=== PATIENT | female | born 1955 | race Caucasian/White ===

== ENCOUNTER 2017-10-22 11:34 | Emergency (ER) | payer OTHER ==
[~2017-10-22] VITALS: Ht 170.2 cm; Wt 90.0 kg
[~2017-10-22 11:34] MED LIST: LIPITOR10 M1 PO; LISINOPRIL10 MG PO; METFORMIN500 MG PO; NAPROSYN500 MG PO; PROTONIX40 M2 PO; ZOFRAN4 MG/TAB PO
[2017-10-22] MEDS ORDERED: VENLAFAXINE37.5 M1 PO (11:57)
[2017-10-22] MEDS ORDERED: PANTOPRAZOLE SO40 M1 PO (11:58)
[2017-10-22 12:25] LABS: INFLUENZA A NONE DETECTED (NONE DETECT); INFLUENZA B NONE DETECTED (NONE DETECT)
[2017-10-22] MEDS ORDERED: AFRIN 12 HOUR0.05 % (12:42)
[2017-10-22] MEDS ORDERED: TESSALON PER100 MG PO (12:42)
[2017-10-22] MEDS ORDERED: ZPAK PO (12:46)
[2017-10-22 12:56] VITALS: BP 145/88
== END 2017-10-22 12:50 | disposition home or self-care (01) | DRG 153 ==
LOC: ED 11:34
PROVIDERS: Emergency Medicine
DX: J06.9 Acute upper respiratory infection, unspecified (principal); E11.9 Type 2 diabetes mellitus without complications; I10 Essential (primary) hypertension; J45.909 Unspecified asthma, uncomplicated

== ENCOUNTER 2017-10-31 21:00 | Emergency (ER) | payer OTHER ==
[~2017-10-31] VITALS: Ht 170.2 cm; Wt 100.0 kg
[~2017-10-31 21:00] MED LIST changes: +AFRIN 12 HOUR0.05 %; +PANTOPRAZOLE SO40 M1 PO; +TESSALON PER100 MG PO; +VENLAFAXINE37.5 M1 PO; +ZPAK PO
[2017-10-31] MEDS ORDERED: IBUPROFEN600 MG PO (23:19)
[2017-10-31 23:26] VITALS: BP 128/69
== END 2017-10-31 23:32 | disposition home or self-care (01) | DRG 563 ==
LOC: ED 21:00
DX: S63.501A Unspecified sprain of right wrist, initial encounter (principal); W01.0XXA Fall on same level from slipping, tripping and stumbling without subsequent striking against object, initial encounter; Y93.01 Activity, walking, marching and hiking; Y92.89 Other specified places as the place of occurrence of the external cause

== ENCOUNTER 2019-08-10 12:39 | Emergency (ER) | payer MEDICARE, OTHER ==
[~2019-08-10] VITALS: Ht 170.2 cm; Wt 91.0 kg
[~2019-08-10 12:39] MED LIST changes: +IBUPROFEN600 MG PO
[2019-08-10] MEDS ORDERED: CALAN40 MG PO (13:02)
[2019-08-10] MEDS ORDERED: ASPIRIN81 MG PO (13:03)
[2019-08-10] MEDS ORDERED: DITROPAN XL10 MG PO (13:03)
[2019-08-10] MEDS ORDERED: PRAMIPEXOLE DI0.5 MG PO (13:05)
[2019-08-10] MEDS ORDERED: CALCIUM 600+D31 TA2 PO (13:07)
[2019-08-10 13:54] LABS: HEMATOCRIT 42.3 % (37.0-47.0); HEMOGLOBIN 14.1 g/dl (12.0-16.0); IMMATURE GRANULOCYTES 0.3 % (0.0-5.0); MEAN CELL VOLUME 95.1 fL CALC (80.0-100.0); MEAN CORPUSCULAR HGB 31.7 pG CALC (26.0-32.0); MEAN CORPUSCULAR HGB CONC 33.3 g/L CALC (32.0-36.0); NEUT# 3.39 thou/uL (2.00-7.15); RED BLOOD COUNT 4.45 mill/uL (4.20-5.60); RED CELL DISTRI WIDTH 12.2 % (11.5-15.5)
[2019-08-10 13:55] LABS: URINE BILIRUBIN - DIPSTICK NEGATIVE (NEGATIVE); URINE BLOOD DIPSTICK TRACE-INTACT (NEGATIVE); URINE COLOR YELLOW; URINE GLUCOSE - DIPSTICK NEGATIVE (NEGATIVE); URINE KETONE NEGATIVE (NEGATIVE); URINE NITRITE - DIPSTICK NEGATIVE (Negative); URINE PROTEIN - DIPSTICK NEGATIVE (NEG-TRACE); URINE SPECIFIC GRAVITY <=1.005; URINE UROBILINOGEN - DIPSTICK 0.2 E.U./dL (0.2)
[2019-08-10 13:57] LABS: URINE BACTERIA FEW hpf; URINE EPITHELIAL CELLS FEW EPI/hpf (0-FEW); URINE LEUK ESTERASE MODERATE (NEGATIVE); URINE RBC 0-2 RBC/hpf (0-5)
[2019-08-10 14:30] LABS: ALBUMIN 4.5 g/dL (3.2-5.0); ALKALINE PHOSPHATASE 75 u/l (38-126); ANION GAP 11 (6-22 (CALC)); BUN 12 mg/dL (8-23); BUN/CREATININE RATIO 15 (12-20 (CALC)); CARBON DIOXIDE 26 mmol/l (22-30); CHLORIDE 106 mmol/l (95-108); CREATININE 0.8 mg/dL (0.5-1.0); GFR > 60 ML/MIN (>=60 (CALC)); GFR FOR AFR.AMER. > 60 ML/MIN (>=60 (CALC)); POTASSIUM 4.1 mmol/l (3.5-5.1); SGOT/AST 25 u/l (9-36); SODIUM 139 mmol/l (137-146); TOTAL PROTEIN 7.6 g/dL (6.3-8.2)
[2019-08-10 14:32] LABS: BILIRUBIN, TOTAL 0.5 mg/dL (0.0-1.4)
[2019-08-10] MEDS ORDERED: KEFLEX500 M1 PO (15:42)
[2019-08-10 16:13] VITALS: BP 143/56
== END 2019-08-10 16:13 | disposition home or self-care (01) ==
LOC: ED 12:39
DX: N39.0 Urinary tract infection, site not specified (principal); R53.1 Weakness; R00.1 Bradycardia, unspecified; I10 Essential (primary) hypertension; E11.9 Type 2 diabetes mellitus without complications; B96.20 Unspecified Escherichia coli [E. coli] as the cause of diseases classified elsewhere

== ENCOUNTER 2020-02-26 | Emergency (ER) | payer MEDICARE, OTHER ==
[~2020-02-26] MED LIST changes: +ASPIRIN81 MG PO; +CALAN40 MG PO; +CALCIUM 600+D31 TA2 PO; +DITROPAN XL10 MG PO; +KEFLEX500 M1 PO; +PRAMIPEXOLE DI0.5 MG PO
[2020-02-26] MEDS ORDERED: LISINOPRIL20 M1 PO (10:56)
[2020-02-26] MEDS ORDERED: ATORVASTATIN CA20 MG PO (10:57)
== END 2020-02-26 11:25 | disposition home or self-care (01) ==
DX: M25.572 Pain in left ankle and joints of left foot (principal); I10 Essential (primary) hypertension; E11.9 Type 2 diabetes mellitus without complications; X50.0XXA Overexertion from strenuous movement or load, initial encounter; Y92.009 Unspecified place in unspecified non-institutional (private) residence as the place of occurrence of the external cause

== ENCOUNTER 2020-03-05 16:23 | Emergency (ER) | payer MEDICARE, OTHER ==
[~2020-03-05 16:23] MED LIST changes: +ATORVASTATIN CA20 MG PO; +LISINOPRIL20 M1 PO
[2020-03-05 17:20] VITALS: BP 147/59
== END 2020-03-05 17:20 | disposition home or self-care (01) ==
LOC: ED 16:23
DX: M25.572 Pain in left ankle and joints of left foot (principal); I10 Essential (primary) hypertension

== ENCOUNTER 2020-03-22 07:56 | Emergency (ER) | payer MEDICARE, OTHER ==
[2020-03-22] MEDS ORDERED: ULTRAM50 MG PO (10:08)
[2020-03-22] MEDS ORDERED: FLEXERIL PO ×2 (10:08)
[2020-03-22 10:28] VITALS: BP 147/64
== END 2020-03-22 10:29 | disposition home or self-care (01) ==
LOC: ED 07:56
DX: S06.0X0A Concussion without loss of consciousness, initial encounter (principal); S16.1XXA Strain of muscle, fascia and tendon at neck level, initial encounter; I10 Essential (primary) hypertension; E11.9 Type 2 diabetes mellitus without complications; W07.XXXA Fall from chair, initial encounter; Y92.009 Unspecified place in unspecified non-institutional (private) residence as the place of occurrence of the external cause

== ENCOUNTER 2020-04-04 15:50 | Inpatient (IN) | payer MEDICARE, OTHER ==
[~2020-04-04] VITALS: Ht 170.2 cm; Wt 90.5 kg
[~2020-04-04 15:50] MED LIST changes: +FLEXERIL PO; +ULTRAM50 MG PO
--- NOTE | 2020-04-04 16:08 | NUR ---
PATIENT TO ROOM WITH A SLOW, STEADY GAIT.
--- NOTE | 2020-04-04 17:30 | NUR ---
PT PRESENTS WITH PROD COUGH THAT STARTED YESTERDAY. LUNGS BI HAVE SCATTERED RHONCI, PT HAS HX OF COPD. FEVER OF YESTERDAY IN 101-102 REGION. AFIBRILE AT 98.2 F. PT STATES HAVING INTERM HEADACHE. DENIES SOB, DIARRHEA AND NAUSEA/VOMITING. WILL CONTINUE TO MONTIOR. CALL LIGHT WITHIN REACH
[2020-04-04 17:45] LABS: HEMATOCRIT 39.6 % (37.0-47.0); HEMOGLOBIN 13.4 g/dl (12.0-16.0); IMMATURE GRANULOCYTES 0.2 % (0.0-5.0); MEAN CELL VOLUME 94.5 fL CALC (80.0-100.0); MEAN CORPUSCULAR HGB CONC 33.8 g/dL CAL (32.0-36.0); NEUT# 2.15 thou/uL (2.00-7.15); RED BLOOD COUNT 4.19 mill/uL (4.20-5.60); RED CELL DISTRI WIDTH 12.2 % (11.5-15.5)
[2020-04-04 17:59] LABS: ALKALINE PHOSPHATASE 65 u/l (38-126); ANION GAP 11 (6-22 (CALC)); BILIRUBIN, TOTAL 0.3 mg/dL (0.0-1.4); BUN 12 mg/dL (8-23); BUN/CREATININE RATIO 20 (12-20 (CALC)); C-REACTIVE PROTEIN < 0.5 mg/dL (0-0.9); CARBON DIOXIDE 25 mmol/l (22-30); CHLORIDE 102 mmol/l (95-108); CREATININE 0.6 mg/dL (0.5-1.0); GFR > 60 ML/MIN (>=60 (CALC)); GFR FOR AFR.AMER. > 60 ML/MIN (>=60 (CALC)); POTASSIUM 3.8 mmol/l (3.5-5.1); SGOT/AST 37 u/l (9-36); SODIUM 134 mmol/l (137-146); TOTAL PROTEIN 7.2 g/dL (6.3-8.2)
[2020-04-04 18:01] LABS: ACT PARTIAL THROMBO TIME 26.8 SECONDS (20.0-32.5)
[2020-04-04 18:06] LABS: D-DIMER 1.35 mg/L (0.19-0.60)
--- NOTE | 2020-04-04 18:25 | NUR ---
PT DISCONNECTED FROM MONITOR TO BE ASSISTED TO BR. PT NOTIFIED OF TRIP TO RADIOLOGY FOR SCANS. SAHARA OCHOA
--- NOTE | 2020-04-04 19:52 | NUR ---
ATTEMPTED TO CALL REPORT TO MED SURG, RECENTERER MENTIONED THAT NURSE IS WITH A PT.
--- NOTE | 2020-04-04 20:07 | NUR ---
ATTEMPTED TO CALL MED SURG FOR REPORT, NO ONE ANSWERED PHONE.
--- NOTE | 2020-04-04 20:11 | NUR ---
GAVE REPORT TO MED SURG
--- NOTE | 2020-04-04 20:12 | NUR ---
TRANSPORTED PT TO MED SURG STABLE AND IN NO DISTESS VIA STRETCHER. CARE ASSUMED TO [facility]
[2020-04-04 20:38] VITALS: BP 179/74
[2020-04-04 22:58] VITALS: BP 144/62
[2020-04-05 04:07] VITALS: BP 122/35
--- NOTE | 2020-04-05 07:30 | NUR ---
REPORT RECEIVED FROM NUMERICAL CONTROL MACHINE OPERATOR RN. PT RESTING IN BED ON LEFT SIDE WITH EYES CLOSED AND NO SIGNS OF DISTRESS. AWAKENS SPONTANEOUSLY. ALERT AND ORIENTED. DENIES PAIN. RESPIRATIONS EVEN AND UNLABORED ON ROOM AIR. PLAN OF CARE REVIEWED. PT ENCOURAGED TO VERBALIZE CONCERNS. STATES THAT SHE HAS TO AMA BY 5PM UNLESS SHE IS ABLE TO GET HER LAP TOP FROM HOME. PROVIDED THE ROOM PHONE AND ALLOWED TO CALL FAMILY TO BRING IN HER BELONGINGS. PT SATISFIED. NO OTHER CONCERNS AT THIS TIME. SAFETY MEASURES IN PLACE. CALL LIGHT WITHIN REACH.
[2020-04-05 08:00] VITALS: BP 117/53
[2020-04-05] MEDS ORDERED: LEVAQUIN750 MG PO ×2 (11:12)
[2020-04-05 11:37] VITALS: BP 110/43
--- NOTE | 2020-04-05 12:00 | NUR ---
PT INDEPENDENT IN ROOM. CONTINUES TO DENY PAIN. HAS NON PRODUCTIVE COUGH WITH DIMINISHED LUNG BASES. IV SITE APPEARS HEALTHY AND FLUSHES. PERSONAL BELONINGS BROUGHT IN BY FAMILY INCLUDING LAPTOP. PT STATES SHE CAN STAY AND WILL NOT LEAVE.
--- NOTE | 2020-04-05 16:00 | NUR ---
NO REQUESTS OR CONCERNS AT THIS TIME. DENIES PAIN. IV SITE APPEARS HEALTHY AND FLUSHES. PT SITTING UP IN BED USING LAPTOP. USING CALL LIGHT PRN FOR ASSISTANCE. SAFETY MEASURES IN PLACE. CALL LIGHT WITHIN REACH.
[2020-04-05 16:09] VITALS: BP 127/60
[2020-04-05 20:19] VITALS: BP 115/65
--- NOTE | 2020-04-05 20:19 | NUR ---
PT RESTING IN BED NO SIGNS OF DISTRESS NOTED, RESP EVEN AND UNLABORED. PT ALERT AND ORIENTED X3, DISCUSSED POC, PT VERBALIZED UNDERSTANDING. IV ANTIBIOTIC INFUSION INITIATED. PT VOICES NO NEEDS OR COMPLAINTS AT THIS TIME, ASSESSMENT COMPLETED, CALL LIGHT IN REACH,CONTINUE TO MONITOR.
[2020-04-05 23:50] VITALS: BP 131/62
--- NOTE | 2020-04-06 | NUR ---
PT RESTING IN BED, C/O RESTLESS LEGS, MEDICATED WITH TYLENOL. CALL LIGHT IN REACH,CONTINUE TO MONITOR.
[2020-04-06 03:34] VITALS: BP 139/63
--- NOTE | 2020-04-06 04:40 | NUR ---
PT RESTING IN BED, NO SIGNS OF DISTRESS NOTED, RESP EVEN AND UNLABORED. DISCUSSED AM LAB DRAW, PT VERBALIZED UNDERSTANDING. LABS OBTAINED PT TOLERATED WELL. CALL LIGHT IN REACH,CONTINUE TO MONITOR.
[2020-04-06 05:34] LABS: HEMATOCRIT 37.3 % (37.0-47.0); HEMOGLOBIN 12.6 g/dl (12.0-16.0); IMMATURE GRANULOCYTES 0.3 % (0.0-5.0); MEAN CELL VOLUME 93.7 fL CALC (80.0-100.0); MEAN CORPUSCULAR HGB 31.7 pG CALC (26.0-32.0); MEAN CORPUSCULAR HGB CONC 33.8 g/dL CAL (32.0-36.0); NEUT# 1.65 thou/uL (2.00-7.15); RED BLOOD COUNT 3.98 mill/uL (4.20-5.60); RED CELL DISTRI WIDTH 12.1 % (11.5-15.5)
[2020-04-06 06:07] LABS: ALBUMIN 3.6 g/dL (3.2-5.0); ALKALINE PHOSPHATASE 67 u/l (38-126); ANION GAP 11 (6-22 (CALC)); BILIRUBIN, TOTAL 0.3 mg/dL (0.0-1.4); BUN 10 mg/dL (8-23); BUN/CREATININE RATIO 16 (12-20 (CALC)); C-REACTIVE PROTEIN 0.7 mg/dL (0-0.9); CARBON DIOXIDE 26 mmol/l (22-30); CHLORIDE 104 mmol/l (95-108); CREATININE 0.6 mg/dL (0.5-1.0); GFR > 60 ML/MIN (>=60 (CALC)); GFR FOR AFR.AMER. > 60 ML/MIN (>=60 (CALC)); SGOT/AST 22 u/l (9-36); SODIUM 137 mmol/l (137-146); TOTAL PROTEIN 6.3 g/dL (6.3-8.2)
--- NOTE | 2020-04-06 06:45 | NUR ---
REPORT RECEIVED FROM SHY DELGADILLO. CARE ASSUMED.
[2020-04-06 07:30] VITALS: BP 139/57
--- NOTE | 2020-04-06 07:30 | NUR ---
PT RESTING IN BED AWAKE. PT IS ALERT AND ORIENTED X3. SHIFT ASSESSMENT COMPLETED AT THIS TIME. IV PATENT X1. O2 SAT 91% PLACED PT ON 2L NASAL CANNULA. O2 SAT INCREASED TO 96%. CALL LIGHT IN REACH. WILL CONTINUE TO MONITOR.
--- NOTE | 2020-04-06 12:00 | NUR ---
PT SITITNG UP IN BED EATING LUNCH. RESP ARE EVEN AND UNLABORED.NO DISTRESS NOTED. CALL LIGHT IN REACH. WILL CONTINUE TO MONITOR.
[2020-04-06 12:03] VITALS: BP 112/66
[2020-04-06 15:38] VITALS: BP 137/69
--- NOTE | 2020-04-06 16:10 | NUR ---
PT SITTING UP IN BED WATCHING TV. RESP ARE EVEN AND UNLABORED. NO DISTRESS NOTED. CALL LIGHT IN REACH. WILL CONTINUE TO MONITOR.
[2020-04-06 19:25] VITALS: BP 110/39
--- NOTE | 2020-04-06 20:00 | NUR ---
PT RESTING IN BED, NO SIGNS OF DISTRESS NOTED, RESP EVEN AND UNLABORED. PT ALERT AND ORIENTED X3, PT APPEARS FLUSHED, MEDICATED PER MAR. IV ANTIBIOTIC INFUSION INITIATED. DISCUSSED POC. ASSESSMENT COMPLETED, CALL LIGHT IN REACH,CONTINUE TO MONITOR.
--- NOTE | 2020-04-06 21:00 | NUR ---
PT DRY HEAVING, ORDER RECEIVED FOR ZOFRAN. PT MEDICATED FOR NAUSEA. NO EMESIS NOTED. IV ZITHRO INITIATED. CALL LIGHT IN REACH,CONTINUE TO MONITOR.
[2020-04-06 23:41] VITALS: BP 147/54
--- NOTE | 2020-04-07 | NUR ---
PT RESTING IN BED WITH EYES CLOSED, NO SIGNS OF DISTRESS NOTED, RESP EVEN AND UNLABORED. CALL LIGHT IN REACH,CONTINUE TO MONITOR.
--- NOTE | 2020-04-07 | NUR ---
PT RESTING IN BED, DISCUSSED TROPONIN, PT AGREES. LAB OBTAINED, PT TOLERATED WELL. CALL LIGHT IN REACH,CONTINUE TO MONITOR.
--- NOTE | 2020-04-07 04:00 | NUR ---
PT RESTING IN BED, VITALS OBTAINED, PT VOICES NO NEEDS OR COMPLAINTS AT THIS TIME. CALL LIGHT IN REACH,CONTINUE TO MONITOR.
[2020-04-07 04:05] VITALS: BP 112/58
[2020-04-07 08:50] VITALS: BP 116/67
--- NOTE | 2020-04-07 08:50 | NUR ---
ASSESSMENT IS COMPLETED:IV SITE IS FREE FROM REDNESS OR EDEMA. HR IS REG,PULSES ARE STRONG X4, ABD IS SOFT WITH ACTIVE BS. BREATH SOUNDS ARE CLEAR BILATERALLY. NO C/O SOB. TELE MONITOR IN PLACE. CONTINUE TO OBSERFE AND MONITOR.
[2020-04-07 11:10] VITALS: BP 94/58
--- NOTE | 2020-04-07 12:30 | NUR ---
PT HAS BEEN RELAXING IN BED WITH NO DSITRESS NOTED. IV SITE IS FREE FROM REDNESS OR EDEMA.,
[2020-04-07 15:28] VITALS: BP 110/55
--- NOTE | 2020-04-07 16:30 | NUR ---
PT IS RELAXING IN BED WITH NO DISTRESS NOTED., IV SITE ISF REE FROM REDNESS OR EDEMA.
[2020-04-07 18:55] VITALS: BP 119/62
--- NOTE | 2020-04-07 21:20 | NUR ---
pt a/o x3. able to expresss needs. no acute distress noted. no c/o pain or discomfort. IV ABT therapy continued per MD order. no adverse reactions noted. will continue to monitor. no redeness or irritation noted to peripheral site. will monitor. pt. awake in bed with call light within reach. bed in lowest position.
[2020-04-07 23:00] VITALS: BP 119/57
--- NOTE | 2020-04-08 01:15 | NUR ---
pt. resting in bed with call light within reach. no acute distress noted. bed in lowest position
[2020-04-08 02:35] VITALS: BP 116/65
--- NOTE | 2020-04-08 04:50 | NUR ---
pt. sleeping in bed. no acute distress noted. call light within reach. bed in lowest position
[2020-04-08 07:20] LABS: HEMATOCRIT 35.9 % (37.0-47.0); HEMOGLOBIN 12.2 g/dl (12.0-16.0); IMMATURE GRANULOCYTES 0.4 % (0.0-5.0); MEAN CELL VOLUME 93.7 fL CALC (80.0-100.0); MEAN CORPUSCULAR HGB 31.9 pG CALC (26.0-32.0); NEUT# 3.13 thou/uL (2.00-7.15); RED BLOOD COUNT 3.83 mill/uL (4.20-5.60); RED CELL DISTRI WIDTH 11.9 % (11.5-15.5)
[2020-04-08 07:34] LABS: ALBUMIN 3.6 g/dL (3.2-5.0); ALKALINE PHOSPHATASE 62 u/l (38-126); ANION GAP 10 (6-22 (CALC)); BILIRUBIN, TOTAL 0.3 mg/dL (0.0-1.4); BUN 14 mg/dL (8-23); BUN/CREATININE RATIO 24 (12-20 (CALC)); C-REACTIVE PROTEIN 1.8 mg/dL (0-0.9); CARBON DIOXIDE 28 mmol/l (22-30); CHLORIDE 103 mmol/l (95-108); CREATININE 0.6 mg/dL (0.5-1.0); GFR > 60 ML/MIN (>=60 (CALC)); GFR FOR AFR.AMER. > 60 ML/MIN (>=60 (CALC)); POTASSIUM 4.4 mmol/l (3.5-5.1); SGOT/AST 22 u/l (9-36); SODIUM 136 mmol/l (137-146); TOTAL PROTEIN 6.4 g/dL (6.3-8.2)
[2020-04-08 09:15] VITALS: BP 120/50
--- NOTE | 2020-04-08 09:15 | NUR ---
ASSESSMENT IS COMPLETED: IV SITE IS FREE FROM REDNESS OR EDEMA. HR IS REG,PULSES ARE STRONG X4, ABD IS SOFT WITH ACTIVE BS. BREATH SOUNDS ARE CLEAR,BILATERALLY, NO C/O SOB SOME COUGH. PT ATTEMPTED WITHOUT O2 SAT 95% ON RA. TELE MONITOR IN PLACE. CONTINUE TO OSBERVE AND MONITOR.
[2020-04-08 10:46] VITALS: BP 112/64
--- NOTE | 2020-04-08 12:30 | NUR ---
PT IS RELAXING IN BED WITH NO DISTRESS NTOED. IV SITE IS FREE FROM REDNESS OR EDEMA.
--- NOTE | 2020-04-08 13:43 | NUR ---
PT HAD A SHOWER AND WALKED BACK TO BED WITHOUT ANY DIFFICULTY IN BREATHING NO C/O SOB. O2 SATURATION ON RA IS 96%
[2020-04-08 15:47] VITALS: BP 105/59
--- NOTE | 2020-04-08 16:15 | NUR ---
PT IS RELAXING IN BED WITH NO DISTRESS NOTED. IV SITE IS FREE FROM REDNESS OR EDEMA.
--- NOTE | 2020-04-08 18:02 | NUR ---
PT IS SITTING IN THE CHAIR. NO DISTRESS NOTED. ASKED HOW SHE IS FEELING" STATED REAL GOOD". CONTINUE TO OSBERVE AND MONITOR.
[2020-04-08 19:10] VITALS: BP 147/82
--- NOTE | 2020-04-08 23:10 | NUR ---
PT IN BED WITH EYES OPEN. ABLE TO MAKE NEEDS KNOWN. CONTINUES ON IV ABT THERAPY. MEDICATIONS GIVEN AND TOLERATED WELL. DENIES LOOSE STOOLS. MOM TO BE GIVEN FOR CONSTIPATION. AMBULATES TO THE TOILET WITH NO ASSIST NEEDED. MEAL AND FLUID INTAKE GOOD. RESPIRATIONS ARE EVEN AND NON LABORED. WILL CONTINUE TO OBSERVE.
[2020-04-08 23:40] VITALS: BP 127/64
--- NOTE | 2020-04-09 02:55 | NUR ---
IN BED WITH EYES CLOSED. NO S/S OF DISTRESS. RESPIRATIONS ARE EVEN AND NON LABORED. EASILY AORUSED AND ABLE TO VERBALIZE NEEDS. CONTINENT OF B/B AND ABLE TO TRANSFER TO TOILET BY SELF WITH NO COMPLICATIONS NOTED.WILL CONTINUE TO OBSERVE
[2020-04-09 03:55] VITALS: BP 128/60
[2020-04-09 06:39] VITALS: BP 132/67
[2020-04-09 08:00] VITALS: BP 140/69
--- NOTE | 2020-04-09 08:00 | NUR ---
ASSESSMENT IS COMPLTED: IV SITE IS FREE FROM REDNESS OR EDEMA. HR IS REG,PULSES ARE STRONG X4, ABD IS SOFT WITH ACTIVE BS., BREATH SOUNDS ARE CLEAR,BILATERALLY. NO C/O SOB. HAS A COUGH. TELE MONITOR IN PLACE. CONTINUE TO OSBERVE AND MONITOR.
[2020-04-09 08:22] LABS: HEMATOCRIT 35.2 % (37.0-47.0); IMMATURE GRANULOCYTES 0.1 % (0.0-5.0); MEAN CELL VOLUME 93.4 fL CALC (80.0-100.0); MEAN CORPUSCULAR HGB 31.8 pG CALC (26.0-32.0); MEAN CORPUSCULAR HGB CONC 34.1 g/dL CAL (32.0-36.0); NEUT# 4.68 thou/uL (2.00-7.15); RED BLOOD COUNT 3.77 mill/uL (4.20-5.60); RED CELL DISTRI WIDTH 11.9 % (11.5-15.5)
[2020-04-09 08:37] LABS: ANION GAP 10 (6-22 (CALC)); BUN 17 mg/dL (8-23); BUN/CREATININE RATIO 26 (12-20 (CALC)); C-REACTIVE PROTEIN 1.8 mg/dL (0-0.9); CARBON DIOXIDE 28 mmol/l (22-30); CHLORIDE 103 mmol/l (95-108); CREATININE 0.6 mg/dL (0.5-1.0); GFR > 60 ML/MIN (>=60 (CALC)); GFR FOR AFR.AMER. > 60 ML/MIN (>=60 (CALC)); POTASSIUM 4.4 mmol/l (3.5-5.1); SODIUM 137 mmol/l (137-146)
[2020-04-09 11:25] VITALS: BP 130/60
--- NOTE | 2020-04-09 12:15 | NUR ---
IV SITE DISCONTINEUD CATHETER INTACT. NO REDNESS OR EDEMA. DISCHARGE INSTRUCTIONS GIVEN AND VERBALIZED UNDERSTANDING. GAVE INFORMATION RE: COVID, PNEUMONIA, AND SOB. WILL LET US KNOW WHEN HER RIDE COMES CONTINUE TO OSBERVE AND MONITOR.
--- NOTE | 2020-04-09 12:59 | NUR ---
Discharge instructions given. Patient verbalizes understanding of same. Discharged in stable condition via Wheelchair to Home with family. All belongings sent with pt.
--- NOTE | 2020-04-11 15:36 | NUR ---
Discharge follow up phone call made 04/11/20. Spoke to patient's yarater. She states the patient is still ill and weak. Says she was able to keep down some broth and pudding today. Daughter states she is watching her closely. No F/U appt has been made with PCP. Enouraged daughter to make appt, expecially if patient does not progress. Discharge medications were obtained and are being taken without issue. No fever or chills per daughter. No questions at this time.
== END 2020-04-09 12:50 | disposition home or self-care (01) | DRG 177 ==
LOC: ED 15:50 → ED-I 19:20 → ED 19:42 → MS2 19:43
PROVIDERS: Nurse Practitioner Family; Student in an Organized Health Care Education/Training Program; ADMIT Internal Medicine; ATTEND Internal Medicine
DX: U07.1 COVID-19 (principal); J12.89 Other viral pneumonia; J44.0 Chronic obstructive pulmonary disease with (acute) lower respiratory infection; E11.9 Type 2 diabetes mellitus without complications; I10 Essential (primary) hypertension; G25.81 Restless legs syndrome; G47.00 Insomnia, unspecified; Z85.3 Personal history of malignant neoplasm of breast
CPT/HCPCS: J1650; Q9967

== ENCOUNTER 2020-04-13 11:27 | Inpatient (IN) | payer MEDICARE, OTHER ==
[~2020-04-13] VITALS: Ht 170.2 cm; Wt 87.9 kg
[~2020-04-13 11:27] MED LIST changes: +LEVAQUIN750 MG PO
--- NOTE | 2020-04-13 11:27 | NUR ---
ARRIVED ALERT AND ORIENTED IN NO DISTRESS VIA EMS
[2020-04-13 11:54] LABS: HEMATOCRIT 41.1 % (37.0-47.0); IMMATURE GRANULOCYTES 1.6 % (0.0-5.0); MEAN CELL VOLUME 91.9 fL CALC (80.0-100.0); MEAN CORPUSCULAR HGB 31.5 pG CALC (26.0-32.0); MEAN CORPUSCULAR HGB CONC 34.3 g/dL CAL (32.0-36.0); NEUT# 4.66 thou/uL (2.00-7.15); RED BLOOD COUNT 4.47 mill/uL (4.20-5.60)
[2020-04-13 11:55] LABS: HEMOGLOBIN 14.1 g/dl (12.0-16.0)
[2020-04-13 12:18] LABS: D-DIMER 1.97 mg/L (0.19-0.60); PROTHROMBIN TIME 10.5 SECONDS (9.0-12.5)
--- NOTE | 2020-04-13 12:19 | NUR ---
PT RESTING, COMPLAINTS OF GENERAL WEAKNESS, MALAISE AND COUGH. IV ABT AND IVF INFUSING ORDERED, COMFORT MEASURES PROVIDED, CALL UMAÑA WITHIN REACH, WILL CONTINUE TO TO MONITOR.
[2020-04-13 12:25] LABS: ALBUMIN 3.9 g/dL (3.2-5.0); ALKALINE PHOSPHATASE 76 u/l (38-126); ANION GAP 13 (6-22 (CALC)); BUN 14 mg/dL (8-23); BUN/CREATININE RATIO 17 (12-20 (CALC)); C-REACTIVE PROTEIN 3.9 mg/dL (0-0.9); CARBON DIOXIDE 26 mmol/l (22-30); CHLORIDE 100 mmol/l (95-108); CREATININE 0.8 mg/dL (0.5-1.0); GFR > 60 ML/MIN (>=60 (CALC)); GFR FOR AFR.AMER. > 60 ML/MIN (>=60 (CALC)); LIPASE 158 u/l (23-300); MAGNESIUM 2.2 mg/dL (1.6-2.3); POTASSIUM 4.6 mmol/l (3.5-5.1); SGOT/AST 19 u/l (9-36); SODIUM 134 mmol/l (137-146); TOTAL PROTEIN 7.2 g/dL (6.3-8.2)
[2020-04-13 12:34] LABS: BILIRUBIN, TOTAL 0.6 mg/dL (0.0-1.4)
--- NOTE | 2020-04-13 13:15 | NUR ---
ASSISTED PT TO BSC. STATES STILL FEELING WEAK. WAS ABLE TO TRANSFER TO BSC WITH MINIMAL ASSISTANCE.
--- NOTE | 2020-04-13 14:00 | NUR ---
PT RESTING, TELE READING BRADYCARDIA WITH ASYMPTOMATIC, COMFORT MEASURES PROVIDED AND REPOSITIONED FOR COMFORT, WILL CONTINUE TO MONITOR.
[2020-04-13 14:22] LABS: URINE BILIRUBIN - DIPSTICK NEGATIVE (NEGATIVE); URINE BLOOD DIPSTICK NEGATIVE (NEGATIVE); URINE COLOR YELLOW; URINE GLUCOSE - DIPSTICK NEGATIVE (NEGATIVE); URINE KETONE NEGATIVE (NEGATIVE); URINE LEUK ESTERASE NEGATIVE (NEGATIVE); URINE NITRITE - DIPSTICK NEGATIVE (Negative); URINE PROTEIN - DIPSTICK NEGATIVE (NEG-TRACE); URINE UROBILINOGEN - DIPSTICK 0.2 E.U./dL (0.2)
--- NOTE | 2020-04-13 15:00 | NUR ---
PT RESTING, NO COMPLAINTS OFFERED, AWARE OF PLANNED POTENTIAL ADMISSION, WILL CONTINUE TO MONITOR.
--- NOTE | 2020-04-13 15:25 | NUR ---
EKG PERFORMED AND COMFORT MEASURES PROVIDED, WILL CONTINUE TO MONTIOR.
--- NOTE | 2020-04-13 16:30 | NUR ---
PT RESTING OFFERS NO NEW COMPLAINTS, CALLL UMAÑA WITHIN REACH
--- NOTE | 2020-04-13 17:40 | NUR ---
PT ASSISTED OOB TO BSC, CONTINENT OF LARGE AMOUNT CLEAR YELLOW URINE, CALL UMAÑA WITHIN REACH.
--- NOTE | 2020-04-13 18:21 | NUR ---
REPORT CALLED TO JEAN MARIE ON MED SURG
[2020-04-13 18:35] VITALS: BP 126/69
--- NOTE | 2020-04-13 18:38 | NUR ---
PT TRANSPORTED TO MED SURG VIA WHEELCHAIR WITH ALL BELONGINGS WITH PATIENT. TELEMETRY ON PT AT TIME OF TRANSPORT
--- NOTE | 2020-04-13 21:40 | NUR ---
PT REPORTEDLY ARRIVED TO UNIT @ 1833, ORIENTED TO UNIT AND ROOM @ THAT TIME. UPON ENTERING ROOM PT FOUND TO BE SITTING UP IN BED. RESPIRATIONS REGULAR AND UNLABORED, PT APPEARS COMFORTABLE AND IN NO DISTRESS. PHYSICAL ASSESMENT COMPLETE. PLAN OF CARE REVIEWED, PT VERBALIZES UNDERSTANDING AND DENIES QUESTIONS. PT PROVIDED W/ HS SNACK, SCHEDULED MEDS ADMINISTERED, SEE MAR. PT DENIES FURTHER NEEDS @ THIS TIME. ITEMS WITHIN REACH. BED LOCKED IN LOW POSITION W/ BED RAILS UP X2. CALL UMAÑA WITHIN REACH, AGREES TO CALL PRN.
[2020-04-13 23:50] VITALS: BP 110/57
--- NOTE | 2020-04-14 02:07 | NUR ---
PT RESTING IN BED, APPEARS TO BE SLEEPING, APPEARS COMFORTABLE AND IN NO DISTRESS, RESPIRATIONS REGULAR AND UNLABORED. ITEMS REMAIN WITHIN REACH, CALL UMAÑA REMAINS WITHIN REACH, BED REMAINS LOCKED IN LOW POSITION W/ BEDRAILS UPX2.
[2020-04-14 04:02] VITALS: BP 123/54
--- NOTE | 2020-04-14 05:40 | NUR ---
AM LABS DRAWN.
[2020-04-14 06:15] LABS: HEMATOCRIT 38.2 % (37.0-47.0); IMMATURE GRANULOCYTES 1.9 % (0.0-5.0); MEAN CELL VOLUME 92.7 fL CALC (80.0-100.0); MEAN CORPUSCULAR HGB 31.6 pG CALC (26.0-32.0); NEUT# 2.21 thou/uL (2.00-7.15); RED BLOOD COUNT 4.12 mill/uL (4.20-5.60); RED CELL DISTRI WIDTH 11.8 % (11.5-15.5)
[2020-04-14 06:38] LABS: ALBUMIN 3.4 g/dL (3.2-5.0); ALKALINE PHOSPHATASE 67 u/l (38-126); ANION GAP 12 (6-22 (CALC)); BILIRUBIN, TOTAL 0.5 mg/dL (0.0-1.4); BUN 14 mg/dL (8-23); BUN/CREATININE RATIO 19 (12-20 (CALC)); C-REACTIVE PROTEIN 2.8 mg/dL (0-0.9); CARBON DIOXIDE 23 mmol/l (22-30); CHLORIDE 105 mmol/l (95-108); CREATININE 0.7 mg/dL (0.5-1.0); GFR > 60 ML/MIN (>=60 (CALC)); GFR FOR AFR.AMER. > 60 ML/MIN (>=60 (CALC)); SGOT/AST 17 u/l (9-36); SODIUM 135 mmol/l (137-146); TOTAL PROTEIN 6.4 g/dL (6.3-8.2)
[2020-04-14 08:15] VITALS: BP 126/55
--- NOTE | 2020-04-14 09:00 | NUR ---
PT SEEN AWAKE, ALERT, ORIENTED X 3, AMBULATORY IN ROOM. LUNGS CLEAR BUT DIMINISHED, NO SHORTNESS OF BREATH NOTED. PT STATES BM TODAY, FINALLY.
[2020-04-14 11:00] VITALS: BP 93/58
--- NOTE | 2020-04-14 13:58 | NUR ---
PT WITHOUT CHANGE IN STATUS, REMAINS AT REST IN THE BED, AMBULATORY TO BR NEEDED.
[2020-04-14 15:58] VITALS: BP 143/63
[2020-04-14 19:17] VITALS: BP 108/58
--- NOTE | 2020-04-14 20:17 | NUR ---
PT. SITTING UP IN BED WATCHING TV. NO DISTRESS NOTED; REPORTS THAT SHE TAKES PRIMAPEXOLE AT HOME, THIS ENTERPRISE SOFTWARE DEVELOPER DOES NOT SEE IT IN HER MED REC, NOTIFIED DR. ARMIJO OF THIS. ONLY MEDS I SEE ARE FLEXERIL AND TRAMDOL IN PAST MED LIST. ASSESSMENT COMPLETED. IV SITE PATENT AND ORDERED IVF INFUSING. LISINOPRIL HELD R/T LOW B/P AND PT. IS IN AGREEMENT WITH THIS. ENCOURAGED TO CALL FOR ANY NEEDS. CALL LIGHT IS IN REACH.
[2020-04-14 23:25] VITALS: BP 135/52
[2020-04-15] VITALS (7 sets, daily range): BP systolic 117–160; BP diastolic 53–79
--- NOTE | 2020-04-15 00:30 | NUR ---
DOGMAN/WOMAN CALLED AND REPORTED HR DOWN TO 37; PT. ASLEEP AND AWAKENED AND VS OBATINED HR BACK UP TO 48. PER PT. SHE HAS BEEN TOLD SHE HAS A LOW HR, BUT IS UNSURE OF HOW LOW AND WORE A HALTER MONITOR BACK IN THE FALL. PT. DENIES ANY CP. JUST REPORTS FEELING WEAK SHE HAS BEEN FEELING. B/P WNL AT 136/75. PT. IS INSTRUCTED TO CALL FOR ANY NEEDS OR IF FEELING DIFFERENT; VERBALIZES UNDERSTANDING. CALL LIGHT IS IN REACH. VERIFIED WITH DOGMAN/WOMAN WELL THAT HR IS BACK UP TO 48, AND INSTRUCTED THEM TO CALL BACK THIS APPELLATE COURT CLERK IF HR DROPS IN THE 30'S AGAIN.
--- NOTE | 2020-04-15 01:30 | NUR ---
THIS TIRE BLADDER MAKER HAS BEEN NOTIFIED 2 MORE TIMES NOW THAT PT. HR IS DOWN TO 37-38 AND WHEN THIS TIRE BLADDER MAKER CHECKS ON PT., PT. IS SLEEPING EVERY TIME AND WHEN AWAKENED DENIES ANY PAIN OR ABNORMAL FEELINGS OTHER THAN HER WEAKNESS SHE ORIGINALLY CAME IN WITH. WHEN PT. IS AWAKENED HR WILL RETURN TO LOW 40'S. NOTIFIED DR. ARMIJO OF THIS AND OF PT. REPORTING HAVING A HX OF LOW HR, BUT IS UNSURE OF HOW LOW. ALSO NOTIFIED THAT THIS TIRE BLADDER MAKER HELD PM LISINOPRIL DUE TO LOW HR AND B/P AND THAT SHE RECIEVED 20MG LISINOPRIL YESTERDAY AM. NO NEW ORDERS RECEIVED AT THIS TIME.JUST CONTINUE TO MONITOR PT.
--- NOTE | 2020-04-15 04:05 | NUR ---
VSS. NO DISTRESS NOTED; DENIES NEEDS/PAIN. ENCOURAGED TO CALL FOR ANY NEEDS. CALL LIGHT IS IN REACH.
--- NOTE | 2020-04-15 05:30 | NUR ---
IV SITE TO RAC LEAKING AND REMOVED WITH CATHETER TIP INTACT. NEW IV STARTED TO LEFT HAND X2 ATTEMPT. PT. TOLERATED WELL. ENCOURAGED TO CALL FOR ANY NEEDS. CALL LIGHT IS IN REACH.
--- NOTE | 2020-04-15 09:00 | NUR ---
PT ALERT AND ORIENTED X 3, NO DISTRESS. PT ASYMPTOMATIC FROM BRADYCARDIA, HR 48 NOW. PT CONTINUES WITH WEAKNESS, NOT PROFOUND.
--- NOTE | 2020-04-15 13:00 | NUR ---
PT SEEN BY DR ARMIJO. HR REMAINS BRADYCARDIC, BUT PT IS ASYMPTOMATIC. NO DISTRESS, NO REPORT OF FEELING POORLY.
--- NOTE | 2020-04-15 16:50 | NUR ---
PT BEFORE, NO COMPLAINTS, NO EVIDENCE OF DISTRESS.
--- NOTE | 2020-04-15 19:55 | NUR ---
ASSESSMENT COMPLETED. NO DISTRESS NOTED;DENIES NEEDS/PAIN AT THIS TIME. UPDATED ON POC. IV SITE PATENT AND ORDERED IVF INFUSING WELL.ENCOURAGED TO CALL FOR ANY NEEDS. CALL LIGHT IS IN REACH. WILL CONTINUE TO MONITOR.
--- NOTE | 2020-04-15 21:19 | NUR ---
PT. C/O LE PAIN AND MEDICATED WITH ORDERED PRN TRAMADOL; WILL REASSESS. DENIES FURTHER NEEDS. CALL LIGHT IS IN REACH.
--- NOTE | 2020-04-15 23:13 | NUR ---
VS OBTAINED. VOICES NO CONCERNS. ENCOURAGED TO CALL FOR ANY NEEDS. ZOSYN HUNG PER EMAR. CALL LIGHT IS IN REACH. WILL CONTINUE TO MONITOR.
[2020-04-16 03:00] VITALS: BP 160/73
--- NOTE | 2020-04-16 03:00 | NUR ---
AM LABS OBTAINED AND VS OBTAINED. ENCOURAGED TO CALL FOR ANY NEEDS. CALL LIGHT IS IN REACH. WILL CONTINUE TO MONITOR.
[2020-04-16 04:25] LABS: HEMOGLOBIN 11.6 g/dl (12.0-16.0); IMMATURE GRANULOCYTES 2.3 % (0.0-5.0); MEAN CELL VOLUME 93.2 fL CALC (80.0-100.0); MEAN CORPUSCULAR HGB 31.8 pG CALC (26.0-32.0); MEAN CORPUSCULAR HGB CONC 34.1 g/dL CAL (32.0-36.0); NEUT# 5.82 thou/uL (2.00-7.15); RED BLOOD COUNT 3.65 mill/uL (4.20-5.60); RED CELL DISTRI WIDTH 11.9 % (11.5-15.5)
[2020-04-16 04:41] LABS: ALBUMIN 3.2 g/dL (3.2-5.0); ALKALINE PHOSPHATASE 65 u/l (38-126); ANION GAP 10 (6-22 (CALC)); BILIRUBIN, TOTAL 0.4 mg/dL (0.0-1.4); BUN 16 mg/dL (8-23); BUN/CREATININE RATIO 23 (12-20 (CALC)); CARBON DIOXIDE 22 mmol/l (22-30); CHLORIDE 108 mmol/l (95-108); CREATININE 0.7 mg/dL (0.5-1.0); GFR > 60 ML/MIN (>=60 (CALC)); GFR FOR AFR.AMER. > 60 ML/MIN (>=60 (CALC)); POTASSIUM 4.2 mmol/l (3.5-5.1); SGOT/AST 17 u/l (9-36); SODIUM 136 mmol/l (137-146); TOTAL PROTEIN 5.9 g/dL (6.3-8.2)
[2020-04-16 05:06] LABS: TSH, 3RD GENERATION 0.47 uIU/mL (0.47 - 4.68)
[2020-04-16 08:00] VITALS: BP 170/77
--- NOTE | 2020-04-16 09:00 | NUR ---
PT IS ALERT, ORIENTED X 3. PT AMBULATORY IN ROOM WITHOUT SHORTNESS OF BREATH. HR REMAINS IN THE 40s WITHOUT SYMPTOMS.
[2020-04-16 12:06] VITALS: BP 136/64
--- NOTE | 2020-04-16 13:00 | NUR ---
PT WITHOUT SIGNIFICANT CHANGE IN STATUS, RESTS IN THE BED IN NO ACUTE DISTRESS.
[2020-04-16 16:02] VITALS: BP 152/51
--- NOTE | 2020-04-16 17:54 | NUR ---
PT WITH HR 40s, ASYMPTOMATIC. PT RESTS IN THE BED IN NO ACUTE DISTRESS.
[2020-04-16 19:30] VITALS: BP 164/73
--- NOTE | 2020-04-16 19:30 | NUR ---
ASSESSMENT COMPLETED. IV SITE PATENT AND ORDERED IVF INFUSING WELL.B/P ELEVATED WILL MEDICATE SHORTLY WITH NIGHT TIME LISINOPRIL. DENIES NEEDS/PAIN. FRESH WATER PROVIDED. ENCOURAGED TO CALL FOR ANY NEEDS. CALL LIGHT IS IN REACH. CALL LIGHT IS IN REACH.
--- NOTE | 2020-04-16 21:02 | NUR ---
SCHED MEDS GIVEN ALONG WITH PRN ULTRAM FOR BLE PAIN; WILL REASSESS. DENIES FURTHER NEEDS. CALL LIGHT IS IN REACH.
[2020-04-16 23:25] VITALS: BP 167/86
--- NOTE | 2020-04-16 23:36 | NUR ---
NOTIFIED DR. ARMIJO OF ELEVATED B/P 167/86 WITH HR 42 AND ALSO OF B/P MEDS GIVEN TODAY. NEW ORDERS RECEIVED AND TO BE CARRIED OUT. WILL UPDATE PT.
[2020-04-17 01:05] VITALS: BP 187/90
--- NOTE | 2020-04-17 01:05 | NUR ---
B/P 187/90 AND MEDICATED WITH ORDERED PRN HYDRALAZINE; WILL REASSESS. DENIES FURTHER NEEDS.
[2020-04-17 03:50] VITALS: BP 145/70
--- NOTE | 2020-04-17 03:50 | NUR ---
VSS. NO DISTRESS NOTED; DENIES NEEDS/PAIN. ENCOURAGED TO CALL FOR ANY NEEDS. CALL LIGHT IS IN REACH. IV SITE PATENT AND INFUSING ORDERED IVF WELL. WILL CONTINUE TO MONITOR.
--- NOTE | 2020-04-17 05:05 | NUR ---
RESTING IN BED WITH NO DISTRESS NOTED; DENIES NEEDS. CALL LIGHT IS IN REACH.
--- NOTE | 2020-04-17 07:15 | NUR ---
REOPRT RECIEVED FROM AGATHA WONG. PT SITTING UP IN BED; ALERT AND ORIENTED. DENIES PAIN. RESPIRATIONS EVEN AND UNLABORED ON ROOM AIR. PT REMAINS ON AIRBORNE/CONTACT PRECAUTIONS DUE TO POSITIVE COVID RESULTS DURING LAST RECENT ADMISSION. TELE ON. IV FLUIDS INFUSING AT KVO; IV SITE APPEARS HEALTHY. PLAN OF CARE REVIEWED. PT ENCOURAGED TO VERBALIZE CONCERNS. STATES UNDERSTANDING. SAFETY MEASURES IN PLACE. CALL LIGHT WITHIN REACH.
[2020-04-17 08:00] VITALS: BP 100/51
--- NOTE | 2020-04-17 10:00 | NUR ---
ASSISTED TO SHOWER.
[2020-04-17 10:45] VITALS: BP 138/72
--- NOTE | 2020-04-17 12:16 | NUR ---
TELE MONITOR NOTIFYING NURSE OF UNSTABLE HEART RATE; HEART RATE RANGING FROM SB 40'S UP TO UNSUSTAINED ST IN THE 130'S. CURRENTLY HEART RATE IS IN THE 80'S. PT SITTING UP ON EDGE OF BED; ASYMPTOMATIC AND DENIES ANY SYMPTOMS OR CHANGES IN CONDITION. IV SITE FLUSHED FOR SCHEDULED ZOSYN; BURNING WITH FLUSHING AND IV SITE HAS MILD REDNESS AND TENDERNESS. IV DC'D.
--- NOTE | 2020-04-17 12:31 | NUR ---
DISCHARGE ORDERS IN AND A VERBAL OK FROM DR. AYALA THAT PT DOES NOT REQUIRE NOON DOSE OF ZOSYN AND OK TO LEAVE WITHOUT IV. TELE REMOVED FOR DISCHARGE.
--- NOTE | 2020-04-17 16:23 | NUR ---
DR. AYALA AT BEDSIDE.
[2020-04-17 16:33] VITALS: BP 139/62
--- NOTE | 2020-04-17 17:50 | NUR ---
Discharge instructions given. Patient verbalizes understanding of same. Discharged in stable condition via Wheelchair to Home with staff. All belongings sent with pt.
== END 2020-04-17 17:50 | disposition home or self-care (01) | DRG 177 ==
LOC: ED 11:27 → ED-I 15:09 → ED 15:38 → ED-I 15:39 → MS2 15:39 → ED-I 15:40 → MS2 17:50
PROVIDERS: Family Medicine; Nurse Practitioner Family; ADMIT Internal Medicine; ATTEND Internal Medicine
DX: U07.1 COVID-19 (principal); J12.89 Other viral pneumonia; J44.0 Chronic obstructive pulmonary disease with (acute) lower respiratory infection; I10 Essential (primary) hypertension; E11.9 Type 2 diabetes mellitus without complications; G25.81 Restless legs syndrome; R00.1 Bradycardia, unspecified
CPT/HCPCS: J0692; J1650; Q9967